=== PATIENT | male | born 1960 | race Caucasian/White ===

== ENCOUNTER 2021-10-11 02:40 | Inpatient (IN) | payer BC ==
[~2021-10-11] VITALS: Ht 195.6 cm; Wt 108.9 kg
[2021-10-11 02:57] VITALS: BP_SYST 165
--- NOTE | 2021-10-11 03:00 | NUR ---
Patient to ER H3 to gown for evaluation. Side rails up. Report given to MONICA KOCH.
--- NOTE | 2021-10-11 03:10 | NUR ---
ARIC Lopez at bedside examining patient.
[2021-10-11] MEDS ORDERED: METOCLOPRAMIDE HCL 10 MG/2 ML VIAL IVP ONE (03:15)
[2021-10-11] MEDS ORDERED: KETOROLAC TROMETHAMINE 30 MG VIAL IVP ONE (03:15)
[2021-10-11] MEDS ORDERED: NACL 0.9% 1,000 ML IV ONE (03:15)
[2021-10-11] MEDS ORDERED: HYDROmorphone 1 MG/ML INJ. CARTRIDGE IVP ONE ×2 (03:30→05:00)
[2021-10-11 03:47] LABS: BASOPHILS # (AUTO) 0.1 K/uL (0.0-0.2); BASOPHILS % (AUTO) 0.6 % (0.0-2.0); EOSINOPHILS # (AUTO) 0.2 K/uL (0.0-0.4); EOSINOPHILS % (AUTO) 2.5 % (0.0-4.0); HEMATOCRIT 41.2 % (36-54); HEMOGLOBIN 14.7 g/dL (14.0-18.0); LYMPHOCYTES # (AUTO) 2.6 K/uL (1.0-5.5); LYMPHOCYTES % (AUTO) 27.3 % (20.5-51.5); MEAN CORPUSCULAR HEMOGLOBIN 32 pg (27-31); MEAN CORPUSCULAR HGB CONC 36 % (32-36); MEAN CORPUSCULAR VOLUME 89 fL (79.0-98.0); MONOCYTES # (AUTO) 0.7 K/uL (0.0-1.0); MONOCYTES % (AUTO) 7.7 % (1.7-9.3); NEUTROPHILS # (AUTO) 5.9 K/uL (1.8-7.7); NEUTROPHILS % (AUTO) 61.9 % (40.0-70.0); PLATELET COUNT (AUTO) 218 K/uL (130-430); RED BLOOD CELL COUNT(AUTO) 4.65 MIL/uL (4.2-6.2); WHITE BLOOD COUNT (AUTO) 9.5 K/uL (4.8-10.8)
--- NOTE | 2021-10-11 03:47 | NUR ---
ASSUMED CARE OF PT FR HOME COMPLAINING OF LOWER ABD PAIN 10/10 RADIATING TO THE LOWER BACK W/ C/O NAUSEA/VOMITING. PT IS AA&OX4. AFEBRILE. NKA. AMBULATORY W/ STEADY GAIT. SAFE & HAZARD FREE ENVIRONMENT PROVIDED. B & B CONTINENT. ALL DUE MEDS GIVEN ORDERED.
--- NOTE | 2021-10-11 03:49 | NUR ---
Blood for labwork drawn from R HAND. Patient tolerated.
--- NOTE | 2021-10-11 03:49 | NUR ---
AWAITING TO BE SEEN BY
--- NOTE | 2021-10-11 03:50 | NUR ---
# 20 gauge angiocath placed to R HAND. Use of asceptic technique. Opsite placed over site. Blood return noted. Blood for lab drawn from site. Flushed with 10 cc of normal saline. No evidence of infiltration noted. Patient tolerated well.
[2021-10-11 04:00] LABS: CALCIUM 8.6 mg/dL (8.4-11.0); CREATININE 1.28 mg/dL (0.55-1.30); POTASSIUM 3.8 mmol/L (3.5-5.1)
[2021-10-11 04:06] LABS: ALBUMIN 3.8 g/dL (3.4-4.8); TOTAL BILIRUBIN 0.8 mg/dL (0.0-1.0)
[2021-10-11] MEDS ORDERED: HYDROmorphone 1 MG/ML INJ. CARTRIDGE ONE (05:03)
--- NOTE | 2021-10-11 05:57 | NUR ---
COVID SWAB SENT TO LAB.
[2021-10-11] MEDS ORDERED: KETOROLAC TROMETHAMINE 30 MG VIAL IVP PRN (06:00)
[2021-10-11] MEDS ORDERED: MORPHINE 2 MG/ML INJ. SYRINGE IVP PRN ×3 (06:00→07:30)
[2021-10-11] MEDS ORDERED: NACL 0.9% 1,000 ML IV SCH (06:00)
--- NOTE | 2021-10-11 06:00 | NUR ---
Admit bed requested Patient will be admitted to care of . Admitted to MED SURG unit. Diagnosis PYELONEPHRITIS Inpatient (Yes or No) YES Observation (Yes or No) NO Orientation concerns or request close to nursing station (Yes or No) NO Covid Status PENDING On vent or bipap NO Isolation requirements NO Needs a sitter NO From Home (Yes or if No enter name of facility) YES Requires Dialysis (Yes or No) NO Med Rec Completed (Yes of No) PENDING
[2021-10-11] MEDS ORDERED: ATEN-41 PO (06:46)
[2021-10-11] MEDS ORDERED: LISI20TA30 PO (06:46)
--- NOTE | 2021-10-11 06:46 | NUR ---
Medication reconciliation completed with information provided by pt at the bedside. Any prior medication reconciliation on file was reviewed and corrected.
[2021-10-11 06:48] LABS: BILIRUBIN,URINE NEGATIVE (NEGATIVE); BLOOD, URINE 1+ (NEGATIVE); CLARITY/URINE CLEAR (CLEAR); COLOR,URINE YELLOW (YELLOW); GLUCOSE,URINE NEGATIVE (NEGATIVE); KETONES,URINE TRACE (NEGATIVE); LEUKOCYTE ESTERASE ,URINE NEGATIVE (NEGATIVE); NITRITE, URINE NEGATIVE (NEGATIVE); PH,URINE 5.5 (5.0-8.0); PROTEIN URINE NEGATIVE (NEGATIVE); UROBILINOGEN,URINE 0.2 (0.2-1.0)
--- NOTE | 2021-10-11 07:24 | NUR ---
REPORT GIVEN TO AUGUST RETANA
[2021-10-11] MEDS ORDERED: ONDANSETRON HCL 4 MG/2 ML VIAL IVP PRN (07:30)
[2021-10-11] MEDS ORDERED: MUPIROCIN 2% TOPICAL OINTMENT 22 GM NS PRN (07:30)
[2021-10-11] MEDS ORDERED: LORazepam 2 MG/ML VIAL IVP PRN (07:30)
[2021-10-11] MEDS ORDERED: POTASSIUM CHLORIDE 20 MEQ TAB.PRT.SR PO PRN (07:30)
[2021-10-11] MEDS ORDERED: ACETAMINOPHEN 325 MG TABLET PO PRN ×2 (07:30→08:15)
[2021-10-11] MEDS ORDERED: DOCUSATE SODIUM 100 MG CAPSULE PO PRN (07:30)
[2021-10-11] MEDS ORDERED: ZOLPIDEM TARTRATE 5 MG TABLET PO PRN (07:30)
[2021-10-11] MEDS ORDERED: MAGNESIUM SULFATE 50 ML IV PRN (07:30)
--- NOTE | 2021-10-11 08:19 | NUR ---
SPOKE WITH pa FROM UROLOGY STATED SHE SPOKE WITH PT REGARDING ADMIT ORDERS. PER PA STATED PT DOES NOT WANT TO STAY IN THE HOSPITAL AND WILL FOLLOW UP WITH OUTPATIENT UROLOGY.
[2021-10-11] MEDS ORDERED: lisinopriL 20 MG TABLET PO SCH (09:00)
[2021-10-11] MEDS ORDERED: cefTRIAXone 1 GM IVPB PREMIX 50 ML IV SCH (09:00)
[2021-10-11] MEDS ORDERED: ATENOLOL 25 MG TABLET(TENORMIN) PO SCH (09:00)
[2021-10-11] MEDS ORDERED: TAMS-11 PO (09:22)
[2021-10-11] MEDS ORDERED: IBUP-1969 PO (09:23)
[2021-10-11 09:52] VITALS: BP_SYST 134
--- NOTE | 2021-10-11 09:55 | NUR ---
IV FLUIDS STOPED AT 950
--- NOTE | 2021-10-11 09:56 | NUR ---
Patient given written and verbal discharge instructions and verbalizes understanding. ER MD discussed with patient the results and treatment provided. Patient in stable condition. ID arm band removed. IV catheter removed intact and dressing applied, no active bleeding. Rx of FLOMAX, IBUPROFEN given. Patient educated on pain management and to follow up with PMD. Pain Scale 3/10. Opportunity for questions provided and answered. Medication side effect fact sheet provided.
[2021-10-11 10:39] LABS: BACTERIA,URINE RARE /HPF (None Seen); MUCUS,URINE 1+ /LPF (None Seen); WBC,URINE 0-3 /HPF (0-3)
== END 2021-10-11 09:56 | disposition home or self-care (01) | DRG 694 ==
LOC: SED 02:40 → SMU 05:54
PROVIDERS: ADMIT Family Medicine; ATTEND Family Medicine
DX: N13.2 Hydronephrosis with renal and ureteral calculous obstruction (principal); I10 Essential (primary) hypertension; Z20.822 Contact with and (suspected) exposure to COVID-19
CPT/HCPCS: 36415; 76376; 80053; 81000; 85025; J0696; J1170; J1885; J2765